=== PATIENT | female | born 1985 | race African-American/Black ===

== ENCOUNTER 2021-03-20 17:43 | Emergency (ER) | payer MEDICAID, OTHER ==
[~2021-03-20] VITALS: Ht 170.2 cm; Wt 111.0 kg
[~2021-03-20 17:43] MED LIST: OMEP20CA14 PO; PRE NATAL VITAMIN
[2021-03-20] MEDS: SODIUM CHLORIDE 0.9% 1,000 ML IV ONE (20:46)
[2021-03-20 20:51] LABS: BASOPHILS % 0.8 % (0.0-2.0); EOSINOPHILS % 1.9 % (0.0-5.0); HEMATOCRIT. 31.3 % (36.0-48.0); HEMOGLOBIN. 10.3 g/dL (12.0-16.0); LYMPHOCYTES % 29.8 % (20.0-50.0); MEAN CORPUSCULAR HEMOGLOBIN 26.9 pg (28.0-32.0); MEAN CORPUSCULAR VOLUME 81.8 fL (81.0-99.0); MEAN PLATELET VOLUME 7.3 fl (7.4-10.4); MONOCYTES % 8.6 % (2.0-8.0); NEUTROPHILS % 58.9 % (40.0-76.0); PLATELET 325 x1000/uL (130-400); RED BLOOD CELL COUNT 3.82 mill/uL (4.2-5.4); RED CELL DISTRIBUTION WIDTH 14.3 % (11.6-14.6)
[2021-03-20 20:58] LABS: CHLORIDE 106 mEq/L (98-107)
[2021-03-20 21:24] LABS: B-HCG QUANTITATIVE 52515 mIU/mL (<3)
[2021-03-20 23:23] LABS: CLARITY URINE CLOUDY (CLEAR); COLOR URINE YELLOW (YELLOW); KETONES URINE NEGATIVE (NEGATIVE); LEUKOCYTE ESTERASE URINE NEGATIVE (NEGATIVE); NITRITE URINE POSITIVE (NEGATIVE); OCCULT BLOOD URINE 1+ (NEGATIVE); PH URINE 5.5 (4.5-8.0); PROTEIN URINE NEGATIVE (NEGATIVE); SPECIFIC GRAVITY URINE 1.028 (1.005-1.030)
[2021-03-20] MEDS ORDERED: CEPH500T MT (23:53)
[2021-03-21 00:20] VITALS: BP 128/70
== END 2021-03-21 00:20 | disposition home or self-care (01) ==
LOC: ER 17:43
DX: O23.12 Infections of bladder in pregnancy, second trimester (principal); F17.290 Nicotine dependence, other tobacco product, uncomplicated; Z88.0 Allergy status to penicillin; Z3A.15 15 weeks gestation of pregnancy
CPT/HCPCS: 36415; 76705; 76801; 80053; 81003; 83690; 84702; 85025; 96360; 99284; 99406; J7030